=== PATIENT | female | born 1970 | race Caucasian/White ===

== ENCOUNTER → 2019-03-09 | Outpatient (CLI) | payer OTHER ==
[~2019-03-09] MED LIST: ANTIVERT25 MG PO; IBUPROFEN 800800 M1 PO; LOESTRIN FE 1-1 EACH PO; PEPCID20 MG PO; PREDNISONE 20 M20 MG PO; VALIUM5 MG PO; ZIAGEN 300 MG300 MG; ZOFRAN ODT4 MG PO; [UNRECOGNIZED DRUG - OTHER]
== END ==
LOC: ULTRA 07:37
DX: K82.4 Cholesterolosis of gallbladder (principal)

== ENCOUNTER → 2019-04-30 | Outpatient (CLI) | payer OTHER | LOC: MRI 10:58 | DX: R93.0 Abnormal findings on diagnostic imaging of skull and head, not elsewhere classified (principal); R90.82 White matter disease, unspecified ==

== ENCOUNTER → 2020-07-07 | Outpatient (CLI) | payer OTHER | LOC: LAB 11:43 | PROVIDERS: ATTEND Neuromusculoskeletal Medicine & OMM | DX: Z20.828 Contact with and (suspected) exposure to other viral communicable diseases (principal) ==